=== PATIENT | female | born 1985 | race Caucasian/White ===

== ENCOUNTER 2024-05-11 08:18 | Outpatient (CLI) | payer OTHER, SELFPAY ==
[2024-05-11 09:17] LABS: HCG Quantitative* < 2.39 mIU/mL
[2024-05-12 12:59] LABS: Estradiol Premenol Female 356 pg/mL
[2024-05-15 10:57] LABS: Progesterone, HPLC-MS/MS 29.54 ng/mL
== END 2024-05-11 08:19 | disposition home or self-care (01) ==
PROVIDERS: Visit Provider Obstetrics & Gynecology
DX: Z32.00 Encounter for pregnancy test, result unknown (principal); Z31.41 Encounter for fertility testing
CPT/HCPCS: 36415; 82670; 84144; 84702